=== PATIENT | male | born 1990 | race Caucasian/White ===

== ENCOUNTER 2024-05-12 10:41 | Inpatient (IN) | payer MEDICAID, OTHER ==
[2024-05-12] MEDS: OLANZapine 10 MG TABLET PO ONE (11:56)
[2024-05-12] MEDS: LORazepam 2 MG TABLET PO ONE (11:56)
[2024-05-12 12:11] LABS: COVID AG,FIA SOURCE NASAL SWAB
[2024-05-12] MEDS: DiphenhydrAMINE HCL 25 MG CAPSULE PO ONE (12:41)
[2024-05-12] MEDS ORDERED: ZOLPIDEM TARTRATE 10 MG TABLET PO PRN (13:00)
[2024-05-12] MEDS ORDERED: LORazepam 2 MG TABLET PO PRN (13:00)
[2024-05-12] MEDS ORDERED: HALOPERIDOL 5 MG TABLET PO PRN (13:00)
[2024-05-12 13:06] LABS: SARS-COV2 (COVID) ANTIGEN,FIA Negative (Negative)
[2024-05-12 15:00] VITALS: RESP 18
[2024-05-13 08:05] VITALS: RESP 18
[2024-05-13] MEDS: OLANZapine 5 MG TABLET PO SCH (12:55)
[2024-05-13] MEDS ORDERED: MAG HYDROX/ALUMINUM HYD/SIMETH ES 30 ML SUSPENSION UDCUP PO PRN (14:30)
[2024-05-13] MEDS ORDERED: MAGNESIUM HYDROXIDE SUSPENSION 30 ML UDCUP PO PRN (14:30)
[2024-05-13] MEDS ORDERED: DOCUSATE SODIUM 100 MG CAPSULE PO PRN (14:30)
[2024-05-13] MEDS ORDERED: ONDANSETRON 4 MG TABLET PO PRN (14:30)
[2024-05-13] MEDS ORDERED: ALBUTEROL SULFATE HFA 90 MCG/PUFF 8 GM INHALER IH PRN (14:30)
[2024-05-13] MEDS ORDERED: NICOTINE 14 MG/24 HOUR PATCH TD PRN (14:30)
[2024-05-13] MEDS ORDERED: CloNIDine HCL 0.1 MG TABLET PO PRN (14:30)
[2024-05-13] MEDS ORDERED: ACETAMINOPHEN 325 MG TABLET PO PRN (14:30)
[2024-05-13] MEDS ORDERED: PETROLATUM,WHITE 28 GM JELLY TP PRN (14:30)
[2024-05-13] MEDS ORDERED: GuaiFENesin/D-METHORPHAN [SUGAR-FREE] 200-20MG/10 ML SYRUP UDCUP PO PRN (14:30)
[2024-05-13] MEDS ORDERED: LOPERAMIDE HCL 2 MG CAPSULE PO PRN (14:30)
[2024-05-13] MEDS ORDERED: IBUPROFEN 400 MG TABLET PO PRN (14:30)
[2024-05-13 20:23] VITALS: BP 121/68; PULSE 82; RESP 17; TEMP 98; O2SAT 98
[2024-05-14 08:26] VITALS: RESP 18
[2024-05-14 20:03] VITALS: RESP 18
[2024-05-15] MEDS ORDERED: OLAN5TAB52 PO (09:49)
== END 2024-05-15 14:15 | disposition home or self-care (01) | DRG 750 ==
LOC: EMS 10:41 → B3A 14:11
PROVIDERS: ADMIT Psychiatry & Neurology Psychiatry; ATTEND Psychiatry & Neurology Psychiatry
PROC: GZHZZZZ Group Psychotherapy (ICD-10-PCS; principal; 2024-05-13)
PROC: GZ51ZZZ Individual Psychotherapy, Behavioral (ICD-10-PCS; 2024-05-13)
DX: F25.0 Schizoaffective disorder, bipolar type (principal); R45.851 Suicidal ideations; F41.9 Anxiety disorder, unspecified; Z20.822 Contact with and (suspected) exposure to COVID-19; F17.210 Nicotine dependence, cigarettes, uncomplicated
CPT/HCPCS: 99285; Z7502; Z7610